=== PATIENT | female | born 1970 | race Caucasian/White ===

== ENCOUNTER 2018-04-14 09:59 | Emergency (ER) | payer MEDICAID ==
[~2018-04-14] VITALS: Ht 165.1 cm; Wt 80.0 kg
[~2018-04-14 09:59] MED LIST: ALBU18HF2 INH; CITA20TA2 PO; DICY10CA88 PO; DOCU-28 PO; FLUT10SP BOTHNARES; GABA300C PO; HYDR-3686 PO; HYDR28.33 TP; LACT1CAP73 PO; NAPR-996 PO; OMEG1CAP13 PO; OXYB5TAB11 PO; PANT20TA3 PO; SUMA50TA PO; TOPI25TA15 PO
[2018-04-14] MEDS ORDERED: METH-360 PO (10:44)
[2018-04-14] MEDS ORDERED: NAPR-56 PO (10:44)
[2018-04-14] MEDS ORDERED: ketorolac tromethamine 15mg/ml inj. IM ONE (10:45)
[2018-04-14 10:58] VITALS: BP 125/65
== END 2018-04-14 10:59 | disposition home or self-care (01) ==
LOC: ER 10:00
DX: G89.29 Other chronic pain (principal); M54.9 Dorsalgia, unspecified; K21.9 Gastro-esophageal reflux disease without esophagitis; J45.909 Unspecified asthma, uncomplicated; Z79.899 Other long term (current) drug therapy
CPT/HCPCS: 96372; 99283; J1885